=== PATIENT | female | born 1995 | race Caucasian/White ===

== ENCOUNTER → 2019-08-09 12:43 | Outpatient (CLI) | payer BC, SELFPAY ==
--- NOTE | 2019-08-09 12:49 | MR_ITS ---
PROCEDURE: MR HEAD/BRAIN WO CON CLINICAL INDICATION: PERSISTENT HEADACHES. INTRACTABLE MIGRAINE W/AURA WITHOUT ST Severe frequent headaches with nausea and vomiting COMPARISON: No exams were available for comparison TECHNIQUE: Routine multiplanar multi echo sequences are performed without gadolinium enhancement. FINDINGS: No midline shift, mass effect, intracranial hemorrhage, or hydrocephalus. The cerebellopontine angles, cerebellum, and brainstem are unremarkable. There is normal garcia-white matter differentiation. No abnormal white matter signal intensity evident. The pituitary, optic chiasm, corpus callosum, and craniocervical junction have an unremarkable appearance. The No mastoid effusion. There is an air-fluid level in the right aspect of the sphenoid sinus with some asymmetric pneumatization of the greater sphenoid wing on the right. IMPRESSION: 1. No acute intracranial findings. 2. Sphenoid sinusitis involving an area of asymmetric area of pneumatization of the greater wing of the sphenoid bone on the right Dictated by: Russ Mendieta MD 08/11/2019 09:36 Electronically signed by Russ Mendieta MD in [place] 08/11/2019 09:36
== END ==
PROVIDERS: PCP Family Medicine; Visit Provider Nurse Practitioner Family
DX: G43.119 Migraine with aura, intractable, without status migrainosus (principal); R51 Headache
CPT/HCPCS: 70551

== ENCOUNTER → 2019-11-29 10:39 | Outpatient (CLI) | payer BC, SELFPAY ==
--- NOTE | 2019-11-29 10:39 | MR_ITS ---
PROCEDURE: MR ANKLE RT WO/W CON CLINICAL INDICATION: right ankle pain, peroneal tendon pathology Right ankle sprain, peroneal tendon pathology, New and worsening pain along the anterior ankle after hearing popping sound COMPARISON: XR ANKLE RT MIN 3V from 11/07/2019 TECHNIQUE: Routine multiplanar multi echo sequences are performed without and with gadolinium enhancement. FINDINGS: There is mild bone marrow edema within the distal aspect of the talus medially and inferiorly at the sustentacular lucy. No obvious fracture. There is some mild soft tissue edema within the soft tissues superior to the distal and lateral aspect of the calcaneus and lateral to the distal aspect of the talus. The tibiofibular ligaments appear intact. The ATFL appears intact. There is some edema within the PT FL which may be due to sprain or partial tear. There does appear to be some intact fibers however present. The peroneal brevis tendon has a comma shaped appearance just distal to the tip of the lateral malleolus and could be seen with a partial tear or sprain. A full-thickness tear is not felt to be present. There is also some increased signal intensity with thickening of the peroneal longus tendon laterally at the region of the distal aspect of the calcaneus. Small amount of soft tissue edema is present laterally at this same area. The posterior tibialis, flexor hallucis longus, flexor digitorum longus, and Achilles tendon appear intact. There is a small amount of fluid along the posterior aspect of the talocalcaneal joint. No abnormal enhancement. IMPRESSION: 1. Sprain versus partial tear of the PT FL. The ATFL appears intact 2. Suspect partial tear is and or sprain of both the peroneal brevis and longus tendons as described above. A complete tear is not felt to be present 3. Bone bruise of the talus distally with associated soft tissue edema Dictated by: Russ Mendieta MD 12/01/2019 06:47 Electronically signed by Russ Mendieta MD in [place] 12/01/2019 06:47
== END ==
PROVIDERS: PCP Nurse Practitioner Family; Visit Provider Podiatrist
DX: M25.371 Other instability, right ankle (principal); M25.571 Pain in right ankle and joints of right foot; S93.401A Sprain of unspecified ligament of right ankle, initial encounter
CPT/HCPCS: 73723; A9576

== ENCOUNTER → 2019-12-06 16:04 | Outpatient (CLI) | payer BC, SELFPAY ==
--- NOTE | 2019-12-06 16:16 | XR_ITS ---
PROCEDURE: XR CHEST 2V CLINICAL HISTORY: SOB ON EXCERTION S COMPARISON: No exams were available for comparison FINDINGS: The cardiomediastinal silhouette and pulmonary vascularity are within normal limits. The lungs are clear without infiltrates, suspicious nodules, or pleural effusions. Mild lower thoracic curvature convex left IMPRESSION: No acute findings. Dictated by: Russ Mendieta MD 12/06/2019 16:32 Electronically signed by Russ Mendieta MD in [place] 12/06/2019 16:32
--- NOTE | 2019-12-06 16:32 | ECG_ITS ---
APPROVED REPORT Exam: Resting ECG HR:72 bpm ECG Measurements Heart Rate 72 AXES PA 156 P 46 QRSd 82 QRS 28 QT 370 T 40 QTc 405 <Conclusion> Normal sinus rhythm with sinus arrhythmia Normal ECG Electronically signed by : Kris Montez, 12/06/2019 17:45:16
[2019-12-06 17:04] LABS: Basophils % 0.3 % (0.1-2.0); Eosinophils # 0.1 K/mm3 (0.0-0.4); Eosinophils % 1.6 % (0.1-12.0); Hemoglobin 13.2 g/dL (12.2-16.2); Lymphocytes # 1.5 K/mm3 (0.7-4.5); Lymphocytes % 21.1 % (10-50); Mean Corpuscular HGB Conc 33.1 g/dL (31.8-35.4); Mean Corpuscular Hemoglobin 27.5 pg (27.0-31.2); Mean Corpuscular Volume 82.9 fl (81-99); Mean Platelet Volume 7.7 fl (7.4-10.4); Monocytes # 0.3 K/mm3 (0.1-1.0); Monocytes % 4.3 % (1.7-9.3); Neutrophils % 72.8 % (37.0-80.0); Platelet Count 205 K/mm3 (142-424); Red Blood Count 4.82 M/mm3 (4.20-5.40); Red Cell Distribution Width 14.6 % (11.5-17.5); White Blood Count 6.9 K/mm3 (4.8-10.8)
[2019-12-06 19:51] LABS: Alanine Aminotransferase 22 U/L (12-78); Albumin/Globulin Ratio 1.6 (1.1-1.8); Alkaline Phosphatase 48 U/L (46-116); Anion Gap 13.1 mEq/L (5-15); Aspartate Amino Transferase 16 U/L (15-37); Bilirubin,Total 0.3 mg/dL (0.2-1.0); Blood Urea Nitrogen 10 mg/dL (7-18); Calcium 8.7 mg/dL (8.5-10.1); Carbon Dioxide 26 mmol/L (21.0-32.0); Chloride 106 mmol/L (98-107); Creatinine,Serum 0.65 mg/dL (0.55-1.02); Estimated Glomerular Filt Rate 114 ml/min (>60); GFR (African American) 138 ML/MIN (>60); Globulin 2.5 gm/dl (1.3-3.2); Glucose 107 mg/dL (74-106); Potassium 4.1 mmoL/L (3.5-5.1); Sodium 141 mmol/L (136-145); Total Protein,Serum 6.5 gm/dL (6.4-8.2)
[2019-12-06 20:06] LABS: HCG Qualitative, Serum Negative (Negative)
== END ==
PROVIDERS: PCP Nurse Practitioner Family; Visit Provider Podiatrist
DX: Z01.818 Encounter for other preprocedural examination (principal); S86.311D Strain of muscle(s) and tendon(s) of peroneal muscle group at lower leg level, right leg, subsequent encounter
CPT/HCPCS: 36415; 71046; 80053; 84703; 85025; 93005

== ENCOUNTER → 2020-01-17 09:46 | Outpatient (CLI) | payer BC, OTHER, SELFPAY ==
--- NOTE | 2020-01-17 09:50 | XR_ITS ---
PROCEDURE: XR ANKLE WT BEARING RT MIN 3V CLINICAL INDICATION: postop pain Injury with pain and recent surgery COMPARISON: XR ANKLE RT MIN 3V from 11/07/2019 MR ANKLE RT WO/W CON from 11/29/2019 XR ANKLE RT MIN 3V from 12/08/2019 XR FOOT WT BEARING RT 3V from 01/17/2020 FINDINGS: AP lateral oblique views obtained in a cast show good alignment with no obvious acute fracture or dislocation. A posterior splint remains in place which obscures bony detail on the AP and oblique views. IMPRESSION: Good alignment with posterior splint in place Dictated by: Russ Mendieta MD 01/17/2020 12:16 Electronically signed by Russ Mendieta MD in [place] 01/17/2020 12:16
== END ==
PROVIDERS: PCP Nurse Practitioner Family; Visit Provider Podiatrist
DX: Z98.890 Other specified postprocedural states (principal); S86.301D Unspecified injury of muscle(s) and tendon(s) of peroneal muscle group at lower leg level, right leg, subsequent encounter
CPT/HCPCS: 73610; 73630

== ENCOUNTER → 2020-02-16 09:55 | Outpatient (CLI) | payer BC, OTHER, SELFPAY ==
--- NOTE | 2020-02-16 09:56 | MR_ITS ---
PROCEDURE: MR ANKLE RT WO/W CON CLINICAL INDICATION: postoperative pain, fall Lateral ankle pain. Prior tendon repair surgery with recent injury. Swelling in the foot and ankle, peroneal tendon pathology with worsening pain COMPARISON: MR ANKLE RT WO/W CON from 11/29/2019 TECHNIQUE: Routine multiplanar multi echo sequences are performed without and with gadolinium enhancement. FINDINGS: There has been prior debridement the peroneus longus and brevis tendons. There is some edema about the tendon sheath and laterally at the retro malleolar groove region and distal to this area to the cuboid region. There is focal linear increased T2 signal involving the peroneus longus tendon at the retro malleolar groove suggesting a nondisplaced split tear. There is also focal increased T2 signal with enhancement at the peroneus brevis tendon at this same area. A complete tear with tendinous retraction is not present. In addition, there is loss of the normal low signal intensity of the ATFL with increased T2 signal medially suggesting a least a partial tear of the ATFL. The PT FL and tibiofibular ligaments appear intact. There is scattered small T2 hyperintensities throughout the bony elements of the ankle consistent with osteopenia. Edematous changes are present along the lateral aspect of the foot and ankle. There is also some soft tissue edema within the subcutaneous tissues along the posterior aspect of the calcaneus. The remaining tendons and ligaments have an unremarkable appearance. Fluid is present about the ankle joint. There is also some edema along the medial aspect of the ankle within the subcutaneous tissues and intrinsic foot muscles medially. IMPRESSION: Postsurgical changes from prior peroneal longus and brevis debridement with abnormal signal intensity in both tendon suggesting incomplete tear is at the retro malleolar groove region it is possible this could represent postsurgical changes as well. A complete tear is not present. Suspect at least partial tear of the ATFL. Diffuse osteopenia. Dictated by: Russ Mendieta MD 02/17/2020 14:42 Electronically signed by Russ Mendieta MD in [place] 02/17/2020 14:42
== END ==
PROVIDERS: PCP Nurse Practitioner Family; Visit Provider Podiatrist
DX: G89.18 Other acute postprocedural pain (principal); S86.301A Unspecified injury of muscle(s) and tendon(s) of peroneal muscle group at lower leg level, right leg, initial encounter; W19.XXXA Unspecified fall, initial encounter
CPT/HCPCS: 73723; A9576

== ENCOUNTER → 2020-09-14 11:46 | Outpatient (CLI) | payer BC, OTHER, SELFPAY ==
--- NOTE | 2020-09-14 11:51 | XR_ITS ---
PROCEDURE: XR FOOT WT BEARING RT 3V CLINICAL INDICATION: Right Ankle Pain COMPARISON: CR XR FOOT WT BEARING RT 3V from 01/17/2020 FINDINGS: No fracture or dislocation. No lytic or blastic change. There is normal mineralization. The joint spaces are well-preserved. No significant degenerative/arthritic changes. No erosive changes evident. Other findings:None. IMPRESSION: No acute findings. Dictated by: Russ Mendieta MD 09/14/2020 14:35 Russ Mendieta MD in [place] 09/14/2020 14:35
== END ==
PROVIDERS: PCP Physician Assistant Medical; Visit Provider Nurse Practitioner
DX: M25.571 Pain in right ankle and joints of right foot (principal)
CPT/HCPCS: 73630

== ENCOUNTER → 2020-10-20 12:43 | Outpatient (CLI) | payer BC, OTHER, SELFPAY ==
--- NOTE | 2020-10-20 12:43 | MR_ITS ---
PROCEDURE: MR ANKLE RT WO/W CON CLINICAL INDICATION: ankle pain Persistent right ankle pain and swelling. Possible peroneal tendon or posterior talofibular ligament tear. COMPARISON: MR MR ANKLE RT WO/W CON from 02/16/2020 TECHNIQUE: Routine multiplanar multi echo sequences are performed without gadolinium enhancement. FINDINGS: The distal tibiofibular syndesmosis and tibiofibular ligaments appear intact. The ATFL and PT FL appear intact.. The deltoid ligament appears intact. The Achilles tendon and the anterior extensor tendons are unremarkable. Posterior tibialis, flexor digitorum longus and flexor hallucis longus tendons are unremarkable. Peroneal tendons appear intact. There is a small amount of fluid posterior to the peroneus longus tendon at the distal calcaneal region and may be due to mild tendinitis.. There is a small amount of edema within the lateral aspect of the foot at the distal calcaneal region. No abnormal fluid collections are evident. There is some minimal subchondral increased T2 signal at the talar dome best detected on the PD sagittal images and coronal STIR images. No abnormal enhancement apparent. IMPRESSION: Small amount of fluid along the peroneal longus tendon which may be due to tendinitis. No disruption apparent. Small ankle joint effusion with mild soft tissue swelling laterally. Minimal subcortical increased T2 signal of the talar dome which may be related to developing subchondral cystic change with mild osteoarthritis. Dictated by: Russ Mendieta MD 10/23/2020 10:52 Russ Mendieta MD in [place] 10/23/2020 10:52
== END ==
PROVIDERS: PCP Physician Assistant Medical; Visit Provider Podiatrist
DX: M25.571 Pain in right ankle and joints of right foot (principal); M25.371 Other instability, right ankle; M25.471 Effusion, right ankle; S93.401A Sprain of unspecified ligament of right ankle, initial encounter
CPT/HCPCS: 73723; A9576